=== PATIENT | male | born 1995 | race African-American/Black ===

== ENCOUNTER 2019-06-25 08:43 | Emergency (ER) | payer BC ==
--- NOTE | 2019-06-25 10:02 | ULT ---
BILATERAL TESTICULAR ULTRASOUND WITH HO SCALE, COLOR FLOW, AND SPECTRAL DOPPLER IMAGING: History Right testicular pain. FINDINGS: The right testis measures 3.9 x 3.8 x 2.7 cm and the left testis measures 3.7 x 3.1 x 2.6 cm. Symmet blaise blood flow is seen to both testicles. The right epididymis measures 3.3 x 1.3 x 1.3 cm and the left epididymis measures 1.2 x 0.8 cm. Ther e is a 0.9 x 0.8 x 0.6 cm cyst in the left epididymal head. There is increased flow to the right epi didymis compared to the left. A small right hydrocele is present. IMPRESSION: 1. Findings are suspicious for right-sided epididymitis. 2. A 9 mm left epididymal head cyst/spermatocele. POS: [facility]
[2019-06-25] MEDS ORDERED: Lidocaine 1% PF 5 ML VIAL ONE (10:23)
[2019-06-25] MEDS ORDERED: cefTRIAXone\\ROCEPHIN 250 MG VIAL ONE (10:23)
[2019-06-25] MEDS ORDERED: Azithromycin 250 MG TAB ONE (10:23)
[2019-06-26 22:01] LABS: Chlam.trachomatis by PCR,Urine Not Detected (NotDetected)
== END 2019-06-25 10:58 | disposition home or self-care (01) ==
LOC: ERS 08:43
DX: N45.1 Epididymitis (principal); F17.220 Nicotine dependence, chewing tobacco, uncomplicated
CPT/HCPCS: 76870; 87491; 87591; 93976; 96372; J0696; J2001